=== PATIENT | male | born 1980 | race Two or more races ===

== ENCOUNTER 2017-11-19 18:02 | Emergency (ER) | payer MEDICAID, OTHER ==
[~2017-11-19] VITALS: Ht 175.3 cm; Wt 100.0 kg
[~2017-11-19 18:02] MED LIST: HYDR-3972 PO
[2017-11-19 18:16] VITALS: BP 132/91
== END 2017-11-19 20:33 | disposition home or self-care (01) ==
LOC: ER 18:03
DX: J06.9 Acute upper respiratory infection, unspecified (principal); J02.9 Acute pharyngitis, unspecified; Z88.6 Allergy status to analgesic agent
CPT/HCPCS: 99281